=== PATIENT | female | born 1990 | race Caucasian/White ===

== ENCOUNTER → 2018-10-17 | Outpatient (CLI) | payer OTHER ==
--- NOTE | 2018-10-17 16:33 | US ---
EXAMINATION TYPE: US pelvis complete transvag DATE OF EXAM: 10/17/2018 COMPARISON: NONE CLINICAL HISTORY: R10.9 Abdominal Pain. Pt states mid ABD pain, N&V TECHNIQUE: Transvaginal (TV) and Transabdominal (TA) . Transabdominal sonographic images of the pel vis were acquired. Transvaginal sonographic images were medically necessary to better assess the fol lowing anatomy: Entire pelvis Date of LMP: 09/29/2018 EXAM MEASUREMENTS: Uterus: 6.1 x 3.3 x 4.5 cm Endometrial Stripe: 0.8 cm Right Ovary: 3.3 x 1.7 x 1.9 cm Left Ovary: 3.9 x 2.3 x 2.2 cm 1. Uterus: Anteverted wnl 2. Endometrium: wnl 3. Right Ovary: wnl 4. Left Ovary: Probable, small resolving hemorrhagic cyst: 2.2 x 1.4 x 1.8 cm 5. Bilateral Adnexa: wnl 6. Posterior cul-de-sac: wnl Results called to Magda at 's office at time of exam. IMPRESSION: No acute process.
--- NOTE | 2018-10-17 16:34 | US ---
EXAMINATION TYPE: US abdomen complete DATE OF EXAM: 10/17/2018 COMPARISON: NONE CLINICAL HISTORY: R10.9 Abdominal Pain. Pt states ABD pain, N&V EXAM MEASUREMENTS: Liver Length: 13.9 cm Gallbladder Wall: 0.3 cm CBD: 0.4 cm Spleen: 8.2 cm Right Kidney: 9.9 x 4.5 x 4.6 cm Left Kidney: 10.5 x 4.9 x 5.1 cm Pancreas: wnl, tail obscured by overlying bowel gas Liver: wnl Gallbladder: wnl Evidence for sonographic Araya's sign: Yes CBD: wnl Spleen: wnl Right Kidney: wnl Left Kidney: wnl Upper IVC: wnl Abd Aorta: wnl, mid and distal portion obscured by overlying bowel gas No abnormality visualized to account for pt's symptoms; results called to Magda kendall Dr's office at [facility] of exam. The liver is homogenous. The intrahepatic portion of the IVC and proximal abdominal aorta are within normal limits. There is no evidence of cholelithiasis. Common bile duct is unremarkable. The visu alized portions of the pancreas are homogenous. The spleen is unremarkable. Kidneys are symmetric a nd free of hydronephrosis. No renal lesions are seen. IMPRESSION: No acute process.
== END | disposition home or self-care (01) ==
LOC: RADUSWWP 15:42
PROVIDERS: ATTEND Family Medicine
DX: R10.9 Unspecified abdominal pain (principal)
CPT/HCPCS: 76700; 76830; 76856

== ENCOUNTER 2018-11-17 10:28 | Day surgery (SDC) | payer OTHER ==
[2018-11-13 16:19] VITALS: BMI 18.8
[~2018-11-17 10:28] MED LIST: LACTATED RINGERS 1,000 ML IV SCH
[2018-11-17 10:36] VITALS: TEMP 97
[2018-11-17] MEDS ORDERED: LIDOCAINE 1% 20 ML VIAL (10MG/ML) FOR IV START INTRADERMA ONE (10:46)
[2018-11-17] MEDS ORDERED: LIDOCAINE 1% INJ 10MG/ML (20 ML MDV) ONE (11:37)
[2018-11-17] MEDS ORDERED: PROPOFOL 10 MG/ML 20 ML VIAL IV ONE (11:37)
--- NOTE | 2018-11-17 11:49 | P.PCN ---
Date of Procedure: 11/17/18 Procedure(s) Performed: BRIEF HISTORY: Patient is a 28-year-old, pleasant, white female, scheduled for an upper endoscopy as a part of evaluation of epigastric pain with intermittent episodes of nausea vomiting for the last 1 year duration. She was started on Prilosec 20 mg daily for a month ago and since then she is feeling much better. She is scheduled for an upper endoscopy to evaluate further.. PROCEDURE PERFORMED: Esophagogastroduodenoscopy with biopsy. PREOPERATIVE DIAGNOSIS: Epigastric pain/intermittent episodes of nausea vomiting of one year duration. IV sedation per anesthesia. PROCEDURE: After informed consent was obtained, the patient was brought into the endoscopy unit. IV sedation was administered by Anesthesia under continuous monitoring. Initially the Olympus GIF-140 video endoscope was inserted into the mouth. Esophagus intubated without any difficulty. It was gradually advanced into the stomach and duodenum and carefully examined. The bulb and the second part of the duodenum appeared normal. The scope at this time was withdrawn to the stomach, adequately insufflated with air, and upon careful examination, mucosa of the antrum, body, cardia and the fundus appeared normal. The scope was then withdrawn into the esophagus. The GE junction was located at 39 cm from the incisors. There was one superficial erosion consistent with LA grade a reflux esophagitis. The rest of the esophagus appeared normal and the patient tolerated the procedure well. IMPRESSION: 1. Mild antral gastritis. 2. LA grade A reflux esophagitis. RECOMMENDATIONS: The findings of this examination were discussed with the patient as her family. She was advised to follow with the biopsy results. Continue with Prilosec 20 mg daily and follow antireflux measures.
[2018-11-17 12:23] VITALS: BP 120/85; PULSE 62; RESP 18
== END 2018-11-17 12:44 | disposition home or self-care (01) ==
LOC: ORWHC2ENDO 10:28
PROVIDERS: ATTEND Internal Medicine Gastroenterology
DX: K29.50 Unspecified chronic gastritis without bleeding (principal); K21.0 Gastro-esophageal reflux disease with esophagitis; Z79.899 Other long term (current) drug therapy; F17.200 Nicotine dependence, unspecified, uncomplicated; Z88.5 Allergy status to narcotic agent
CPT/HCPCS: 81025; 88305; 43239; J2001; J2704

== ENCOUNTER → 2020-11-24 | Outpatient (CLI) | payer OTHER ==
--- NOTE | 2020-11-24 17:47 | CT ---
EXAMINATION TYPE: CT abdomen pelvis w con DATE OF EXAM: 11/24/2020 COMPARISON: None HISTORY: abdominal pain, nausea, vomiting, diarrhea CT DLP: 644 mGycm Automated exposure control for dose reduction was used. CONTRAST: Performed with IV Contrast, patient injected with 100 mL of Isovue 300. There is oral contrast. Images obtained from the diaphragm to the floor the pelvis with IV contrast. Lung bases are clear. There is no pleural effusion. Heart size is normal. There is no pericardial eff usion. Liver spleen stomach pancreas gallbladder appear intact. Bile ducts are not dilated. There is no adre nal mass. Kidneys show satisfactory contrast opacification. There is no hydronephrosis. There is no r etroperitoneal adenopathy. Bladder distends smoothly. There is no inguinal hernia. There is no free f luid in the pelvis. Uterus is anteverted. Lumbar vertebra have normal alignment. Posterior elements are intact. There is no compression fractur e. Bony pelvis is intact. Hip joints are intact. There is no hip dysplasia. There is no mesenteric edema. There is no ascites or free air. There is no sign of a bowel obstructio n. Appendix is not seen. There is no sign of thickened appendix. IMPRESSION: Negative CT scan abdomen and pelvis.
[2020-11-24 17:56] LABS: Basophils # (A) 0.1 k/uL (0-0.2); Basophils % (A) 0 %; Eosinophils # (A) 0.1 k/uL (0-0.7); Eosinophils % (A) 1 %; HCT 45.9 % (34.0-46.0); HGB 15.7 gm/dL (11.4-16.0); Lymphocytes # (A) 1.7 k/uL (1.0-4.8); Lymphocytes % (A) 14 %; MCH 32.4 pg (25.0-35.0); MCHC 34.3 g/dL (31.0-37.0); MCV 94.3 fL (80.0-100.0); Monocytes # (A) 0.8 k/uL (0-1.0); Monocytes % (A) 6 %; Neutrophils % (A) 77 %; Platelet Count 222 k/uL (150-450); RBC 4.86 m/uL (3.80-5.40); WBC 11.7 k/uL (3.8-10.6)
[2020-11-24 18:03] LABS: ALT 21 U/L (4-34); AST 29 U/L (14-36); African American GFR (CKD) >90 (>60 ml/min/1.73 sqM); Albumin 5.1 g/dL (3.5-5.0); Alkaline Phosphatase 73 U/L (38-126); Amylase 71 U/L (30-110); Anion Gap 14 mmol/L; Blood Urea Nitrogen 11 mg/dL (7-17); Calcium 10.5 mg/dL (8.4-10.2); Carbon Dioxide 22 mmol/L (22-30); Chloride 96 mmol/L (98-107); Glucose 95 mg/dL (74-99); Lipase 126 U/L (23-300); Non-African American GFR(CKD) >90 (>60 ml/min/1.73 sqM); Potassium 4.3 mmol/L (3.5-5.1); Sodium 132 mmol/L (137-145); Total Protein 8.1 g/dL (6.3-8.2)
== END | disposition home or self-care (01) ==
LOC: RADCTMAIN 15:09
PROVIDERS: ATTEND Family Medicine
DX: R11.2 Nausea with vomiting, unspecified (principal)
CPT/HCPCS: 80053; 82150; 83690; 83735; 85025; 74177; 36415; Q9967